=== PATIENT | male | born 1970 | race African-American/Black ===

== ENCOUNTER 2020-10-22 08:50 | Inpatient (IN) | payer MEDICAID, OTHER ==
[~2020-10-22] VITALS: Ht 182.9 cm; Wt 134.4 kg
[2020-10-22] MEDS ORDERED: FUROSEMIDE 40MG/4ML VIAL IV ONE (09:15)
[2020-10-22] MEDS ORDERED: DEXAMETHASONE 10 MG/ML VIAL IV ONE (09:30)
[2020-10-22 09:34] LABS: BASOPHILS % 0.5 % (0.0-2.0); EOSINOPHILS % 1.1 % (0.0-5.0); HEMATOCRIT. 46.8 % (42.0-52.0); HEMOGLOBIN. 14.9 g/dL (14.0-18.0); LYMPHOCYTES % 12.5 % (20.0-50.0); MEAN CORPUSCULAR HEMOGLOBIN 23.1 pg (28.0-32.0); MEAN CORPUSCULAR VOLUME 72.8 fL (80.0-94.0); MEAN PLATELET VOLUME 7.5 fl (7.4-10.4); MONOCYTES % 6.5 % (2.0-8.0); NEUTROPHILS % 79.4 % (40.0-76.0); PLATELET 140 x1000/uL (130-400); RED BLOOD CELL COUNT 6.43 mill/uL (4.7-6.1); RED CELL DISTRIBUTION WIDTH 16.6 % (11.6-14.6)
[2020-10-22 09:40] LABS: CHLORIDE 110 mEq/L (98-107)
[2020-10-22 09:43] LABS: PROTHROMBIN TIME 11.2 sec (9.6-11.0)
[2020-10-22] MEDS ORDERED: LEVOFLOXACIN 750MG PREMIX 150 ML IV ONE (09:45)
[2020-10-22] MEDS ORDERED: IBUPROFEN 400MG TABLET PO ONE (10:15)
[2020-10-22] MEDS ORDERED: ACETAMINOPHEN 325MG TABLET PO ONE (12:30)
[2020-10-22] MEDS ORDERED: HYDRALAZINE 20MG/ML VIAL IV ONE (13:30)
[2020-10-22] MEDS ORDERED: HYDROCODONE/ACETAMINOPHEN 5/325MG TABLET PO ONE (13:30)
[2020-10-22] MEDS ORDERED: LORAZEPAM 0.5MG TABLET PO PRN (16:30)
[2020-10-22] MEDS ORDERED: HYDROCODONE/ACETAMINOPHEN 5/325MG TABLET PO PRN (16:30)
[2020-10-22] MEDS ORDERED: ACETAMINOPHEN 325MG TABLET PO PRN ×2 (16:30)
[2020-10-22] MEDS ORDERED: ONDANSETRON HCL 4MG/2ML INJ IV PRN (16:30)
[2020-10-22] MEDS ORDERED: DOCUSATE SODIUM 100MG CAPSULE PO PRN (16:30)
[2020-10-22 17:03] LABS: BG BASE EXCESS 6.7 mmol/L (-2.0-2.0); BG CARBOXYHEMOGLOBIN 1.1 % (0.5-1.5); BG DEOXYHEMOGLOBIN 2.7 % (0.0-5.0); BG FRACTION INSPIRED OXYGEN 100; BG METHEMOGLOBIN 0.3 % (0.0-1.5); BG OXYGEN SATURATION 97.3 % (92.0-98.5); BG OXYHEMOGLOBIN 95.9 % (94.0-97.0); BG PCO2 94.4 mmHg (35.0-45.0); BG PH 7.234 (7.350-7.450); BG PO2 101.6 mmHg (75.0-100.0); BG SAMPLE SITE RIGHT BRACHIAL; BG TOTAL HEMOGLOBIN 17.1 g/dL (12.0-18.0); BG VENT MODE MASK - NRB
[2020-10-22 21:20] VITALS: BP 155/96
[2020-10-23] MEDS: CLONIDINE 0.1MG TABLET PO PRN (00:46)
[2020-10-23 04:00] VITALS: BP 159/95
[2020-10-23] MEDS ORDERED: LIDOCAINE HCL/PF 1% 2ML VIAL ONE (05:00)
[2020-10-23] MEDS: IPRATROPIUM/ALBUTEROL 0.5-3(2.5)MG/3ML NEB HHN PRN (05:06)
[2020-10-23 06:13] LABS: CANNABINOID URINE SCREEN NEGATIVE (NEGATIVE); OPIATES URINE SCREEN PRESUMTIVE POSITIVE (NEGATIVE)
[2020-10-23 06:14] LABS: *AMPHETAMINES SCREEN URINE NEGATIVE (NEGATIVE); *BARBITURATES SCREEN URINE NEGATIVE (NEGATIVE); *BENZODIAZEPINES SCREEN URINE NEGATIVE (NEGATIVE); *COCAINE SCREEN URINE NEGATIVE (NEGATIVE); PHENCYCLIDINE URINE SCREEN NEGATIVE (NEGATIVE)
[2020-10-23 06:44] LABS: METHADONE URINE SCREEN NEGATIVE (NEGATIVE)
[2020-10-23 08:00] VITALS: BP 153/95
[2020-10-23 08:08] LABS: BG BASE EXCESS 4.3 mmol/L (-2.0-2.0); BG CARBOXYHEMOGLOBIN 1.5 % (0.5-1.5); BG DEOXYHEMOGLOBIN 3.3 % (0.0-5.0); BG FRACTION INSPIRED OXYGEN 40; BG HCO3 ACT 34.9 mmol/L (22.0-26.0); BG METHEMOGLOBIN 0.3 % (0.0-1.5); BG OXYGEN SATURATION 96.6 % (92.0-98.5); BG OXYHEMOGLOBIN 94.9 % (94.0-97.0); BG PCO2 81.5 mmHg (35.0-45.0); BG PO2 94.3 mmHg (75.0-100.0); BG SAMPLE SITE RIGHT RADIAL; BG TOTAL HEMOGLOBIN 15.9 g/dL (12.0-18.0); BG VENT MODE MASK - SIMPLE
[2020-10-23] MEDS: FUROSEMIDE 40MG TABLET PO SCH (09:13)
[2020-10-23 10:05] LABS: BASOPHILS % 0.2 % (0.0-2.0); EOSINOPHILS % 0.2 % (0.0-5.0); HEMATOCRIT. 47.9 % (42.0-52.0); HEMOGLOBIN. 15.1 g/dL (14.0-18.0); LYMPHOCYTES % 8.7 % (20.0-50.0); MEAN CORPUSCULAR HEMOGLOBIN 23.1 pg (28.0-32.0); MEAN CORPUSCULAR VOLUME 73.5 fL (80.0-94.0); MEAN PLATELET VOLUME 8.3 fl (7.4-10.4); MONOCYTES % 5.2 % (2.0-8.0); NEUTROPHILS % 85.7 % (40.0-76.0); PLATELET 141 x1000/uL (130-400); RED BLOOD CELL COUNT 6.52 mill/uL (4.7-6.1); RED CELL DISTRIBUTION WIDTH 16.7 % (11.6-14.6)
[2020-10-23 10:13] LABS: CHLORIDE 102 mEq/L (98-107)
[2020-10-23 10:23] LABS: LDL CHOLESTEROL 84 mg/dL (5-100)
[2020-10-23 10:24] LABS: HDL CHOLESTEROL 32 mg/dL (40-59)
[2020-10-23 12:00] VITALS: BP 149/92
[2020-10-23] MEDS: DILTIAZEM HCL 60MG TABLET PO SCH ×2 (13:41→21:05)
[2020-10-23 16:00] VITALS: BP 136/85
[2020-10-23] MEDS: METHYLPREDNISOLONE SOD SUCC 40 MG/ML VIAL IV SCH (17:53)
[2020-10-23 20:00] VITALS: BP 167/99
[2020-10-24] VITALS (7 sets, daily range): BP systolic 152–171; BP diastolic 86–101
[2020-10-24] MEDS: METHYLPREDNISOLONE SOD SUCC 40 MG/ML VIAL IV SCH ×3 (01:00→18:24)
[2020-10-24] MEDS: CLONIDINE 0.1MG TABLET PO PRN ×2 (04:11→12:43)
[2020-10-24] MEDS: DILTIAZEM HCL 60MG TABLET PO SCH ×2 (05:24→14:50)
[2020-10-24 07:08] LABS: CHLORIDE 102 mEq/L (98-107)
[2020-10-24 07:09] LABS: HEMOGLOBIN. 15.8 g/dL (14.0-18.0); MEAN CORPUSCULAR HEMOGLOBIN 23.1 pg (28.0-32.0); MEAN PLATELET VOLUME 8.6 fl (7.4-10.4); PLATELET 156 x1000/uL (130-400); RED BLOOD CELL COUNT 6.85 mill/uL (4.7-6.1); RED CELL DISTRIBUTION WIDTH 16.6 % (11.6-14.6)
[2020-10-24] MEDS ORDERED: LIDOCAINE HCL/PF 1% 2ML VIAL ONE (07:31)
[2020-10-24] MEDS: FUROSEMIDE 40MG TABLET PO SCH (09:21)
[2020-10-24 09:33] LABS: BG BASE EXCESS 3.8 mmol/L (-2.0-2.0); BG CARBOXYHEMOGLOBIN 1.5 % (0.5-1.5); BG DEOXYHEMOGLOBIN 12.9 % (0.0-5.0); BG HCO3 ACT 31.9 mmol/L (22.0-26.0); BG METHEMOGLOBIN 0.2 % (0.0-1.5); BG OXYGEN SATURATION 86.9 % (92.0-98.5); BG OXYHEMOGLOBIN 85.4 % (94.0-97.0); BG PCO2 62.1 mmHg (35.0-45.0); BG PH 7.329 (7.350-7.450); BG PO2 52.3 mmHg (75.0-100.0); BG SAMPLE SITE RIGHT RADIAL; BG TOTAL HEMOGLOBIN 16.4 g/dL (12.0-18.0)
[2020-10-24] MEDS ORDERED: FUROSEMIDE 40MG/4ML VIAL IVP NR (13:00)
[2020-10-24] MEDS: IPRATROPIUM/ALBUTEROL 0.5-3(2.5)MG/3ML NEB HHN PRN ×3 (15:38→23:50)
[2020-10-24] MEDS: DILTIAZEM HCL 90MG TABLET PO SCH (21:00)
[2020-10-24 23:07] LABS: PLATELET ESTIMATE NORMAL
[2020-10-25] VITALS: BP 158/85
[2020-10-25] MEDS: METHYLPREDNISOLONE SOD SUCC 40 MG/ML VIAL IV SCH ×2 (01:19→09:15)
[2020-10-25 03:35] VITALS: BP 163/93
[2020-10-25] MEDS: CLONIDINE 0.1MG TABLET PO PRN ×2 (03:41→12:49)
[2020-10-25 04:00] VITALS: BP 152/83
[2020-10-25] MEDS: DILTIAZEM HCL 90MG TABLET PO SCH (06:00)
[2020-10-25 07:45] LABS: HEMATOCRIT. 50.1 % (42.0-52.0); HEMOGLOBIN. 16.1 g/dL (14.0-18.0); MEAN CORPUSCULAR HEMOGLOBIN 22.8 pg (28.0-32.0); MEAN CORPUSCULAR VOLUME 70.8 fL (80.0-94.0); MEAN PLATELET VOLUME 8.5 fl (7.4-10.4); PLATELET 204 x1000/uL (130-400); RED BLOOD CELL COUNT 7.08 mill/uL (4.7-6.1); RED CELL DISTRIBUTION WIDTH 15.7 % (11.6-14.6)
[2020-10-25 08:00] VITALS: BP 144/88
[2020-10-25 08:00] LABS: CHLORIDE 98 mEq/L (98-107)
[2020-10-25] MEDS: FUROSEMIDE 40MG TABLET PO SCH (09:15)
[2020-10-25 12:00] VITALS: BP 164/98
[2020-10-25] MEDS ORDERED: DILT90TA2 PO (12:04)
[2020-10-25] MEDS ORDERED: FURO40TA5 PO (12:04)
[2020-10-25] MEDS ORDERED: MED4 MT (12:04)
[2020-10-25] MEDS ORDERED: ALBU6.7H9 INH (12:11)
[2020-10-25 12:40] VITALS: BP 164/98
[2020-10-25 14:18] LABS: PLATELET ESTIMATE NORMAL
== END 2020-10-25 13:28 | disposition home or self-care (01) | DRG 816 ==
LOC: ER 08:50 → EDBEDREQ 09:57 → 7WST 11:45 → EDBEDREQ 11:48 → ENRESERV 19:24 → 5WST 10-23 02:36
PROVIDERS: ADMIT Internal Medicine; ATTEND Internal Medicine
PROC: 5A09357 Assistance with Respiratory Ventilation, Less than 24 Consecutive Hours, Continuous Positive Airway Pressure (ICD-10-PCS; principal; 2020-10-23)
PROC: 5A09357 Assistance with Respiratory Ventilation, Less than 24 Consecutive Hours, Continuous Positive Airway Pressure (ICD-10-PCS; 2020-10-24)
PROC: 5A09357 Assistance with Respiratory Ventilation, Less than 24 Consecutive Hours, Continuous Positive Airway Pressure (ICD-10-PCS; 2020-10-25)
DX: T59.891A Toxic effect of other specified gases, fumes and vapors, accidental (unintentional), initial encounter (principal); J96.01 Acute respiratory failure with hypoxia; J96.02 Acute respiratory failure with hypercapnia; I11.0 Hypertensive heart disease with heart failure; I50.42 Chronic combined systolic (congestive) and diastolic (congestive) heart failure; E66.2 Morbid (severe) obesity with alveolar hypoventilation; Z68.41 Body mass index [BMI] 40.0-44.9, adult; D72.0 Genetic anomalies of leukocytes; J68.0 Bronchitis and pneumonitis due to chemicals, gases, fumes and vapors; I16.0 Hypertensive urgency; K46.9 Unspecified abdominal hernia without obstruction or gangrene; Z20.822 Contact with and (suspected) exposure to COVID-19; Y92.89 Other specified places as the place of occurrence of the external cause; Z79.899 Other long term (current) drug therapy; Z88.8 Allergy status to other drugs, medicaments and biological substances; R07.2 Precordial pain
CPT/HCPCS: 36415; 36600; 71045; 74176; 80048; 80053; 80061; 80305; 82375; 82805; 83036; 83880; 84443; 84484; 85025; 85379; 93005; 93306; 94640; 94660; 99291; J0360; J1100; J1940; J1956; J2920; J3490; U0003; U0005

== ENCOUNTER 2023-06-16 16:24 | Emergency (ER) | payer MEDICAID ==
[~2023-06-16] VITALS: Ht 177.8 cm; Wt 127.0 kg
[~2023-06-16 16:24] MED LIST: ALBU6.7H3 INH; DILT90TA2 PO; FURO40TA5 PO; MED4 MT
[2023-06-16] MEDS: METHYLPREDNISOLONE SOD SUCC 125MG/2ML (ACT-O-VIAL) IV STA (16:32)
[2023-06-16] MEDS: ALBUTEROL (0.083%) 2.5MG/3ML NEB HHN SCH (16:42)
[2023-06-16] MEDS: IPRATROPIUM BROMIDE (0.02%) 0.5MG/2.5ML NEB HHN STA (16:52)
[2023-06-16] MEDS: FUROSEMIDE 40MG/4ML VIAL IVP ONE (17:00)
[2023-06-16 18:03] LABS: BASOPHILS % 0.3 % (0.0-2.0); DIFFERENTIAL COMMENT 0; EOSINOPHILS % 0.3 % (0.0-5.0); HEMATOCRIT. 44.5 % (42.0-52.0); HEMOGLOBIN. 14.4 g/dL (14.0-18.0); LYMPHOCYTES % 8.1 % (20.0-50.0); MEAN CORPUSCULAR HEMOGLOBIN 22.7 pg (28.0-32.0); MEAN CORPUSCULAR HGB CONC 32.4 g/dL (31.0-37.0); MEAN CORPUSCULAR VOLUME 70.1 fL (80.0-94.0); MEAN PLATELET VOLUME 8.8 fl (7.4-10.4); MONOCYTES % 8.3 % (2.0-8.0); PLATELET 173 x1000/uL (130-400); RED BLOOD CELL COUNT 6.35 mill/uL (4.7-6.1); RED CELL DISTRIBUTION WIDTH 15.4 % (11.6-14.6); WHITE BLOOD COUNT 10.8 x1000/uL (4.5-11.0)
[2023-06-16] MEDS: KETOROLAC 30MG/ML VIAL IV ONE (18:08)
[2023-06-16 18:14] LABS: PARTIAL THROMBOPLASTIN TIME 27.2 sec (23.4-31.0); PROTHROMBIN TIME 11.4 sec (9.6-11.0)
[2023-06-16 18:17] LABS: ALANINE AMINOTRANSFERASE 20 IU/L (10-49); ALBUMIN 4.4 g/dL (3.2-4.8); ASPARTATE AMINOTRANSFERASE 18 IU/L (<34); BILIRUBIN TOTAL 2.2 mg/dL (0.1-1.0); CALCIUM 9.3 mg/dL (8.7-10.4); CARBON DIOXIDE 33 mEq/L (21-32); CHLORIDE 102 mEq/L (98-107); CREATININE 0.9 mg/dL (0.6-1.3); GLUCOSE 93 mg/dL (70-105); PROTEIN TOTAL 7.2 g/dL (6.0-8.3); SODIUM 139 mEq/L (136-145); TROPONIN I HIGH SENSITIVITY 48 ng/L (3.0-53); UREA NITROGEN BLOOD 12 mg/dL (9-23)
[2023-06-16] MEDS: IPRATROPIUM BROMIDE (0.02%) 0.5MG/2.5ML NEB HHN SCH (18:53)
[2023-06-16 19:00] VITALS: TEMP 98.2
[2023-06-16] MEDS: HYDRALAZINE 20MG/ML VIAL IV ONE (19:03)
[2023-06-16 19:37] VITALS: PULSE 104; RESP 20; O2SAT 95
[2023-06-16] MEDS: NITROGLYCERIN 0.4MG TABLET SL SL ONE (21:11)
[2023-06-16 21:23] LABS: TROPONIN I HIGH SENSITIVITY 44 ng/L (3.0-53)
[2023-06-16 23:25] VITALS: BP 168/80; PULSE 112; RESP 18
== END 2023-06-17 00:25 | disposition short-term general hospital (02) ==
LOC: ER 16:34
DX: J44.1 Chronic obstructive pulmonary disease with (acute) exacerbation (principal); I11.0 Hypertensive heart disease with heart failure; I50.9 Heart failure, unspecified; Z79.899 Other long term (current) drug therapy
CPT/HCPCS: 80053; 83880; 85025; 85610; 85730; 84484; 36415; 71045; 73610; 93005; 94644; 96374; 96375; 99291; J1940; J0360; J1885; J2930; Z7610 ×6; 94003; 94640

== ENCOUNTER 2023-09-07 21:54 | Emergency (ER) | payer MEDICAID ==
[~2023-09-07] VITALS: Ht 185.4 cm; Wt 140.0 kg
[2023-09-07 21:56] VITALS: TEMP 98.4; O2SAT 99
[2023-09-07 23:21] VITALS: BP 156/94; PULSE 84; RESP 17
[2023-09-07] MEDS: HYDROCODONE/ACETAMINOPHEN 5/325MG TABLET PO ONE (23:21)
[2023-09-07 23:24] LABS: BASOPHILS % 0.3 % (0.0-2.0); DIFFERENTIAL COMMENT 0; EOSINOPHILS % 1.6 % (0.0-5.0); HEMATOCRIT. 51.6 % (42.0-52.0); HEMOGLOBIN. 16.1 g/dL (14.0-18.0); LYMPHOCYTES % 12.8 % (20.0-50.0); MEAN CORPUSCULAR HEMOGLOBIN 22.1 pg (28.0-32.0); MEAN CORPUSCULAR HGB CONC 31.2 g/dL (31.0-37.0); MEAN CORPUSCULAR VOLUME 70.8 fL (80.0-94.0); MEAN PLATELET VOLUME 8.4 fl (7.4-10.4); MONOCYTES % 6.3 % (2.0-8.0); PLATELET 199 x1000/uL (130-400); RED BLOOD CELL COUNT 7.28 mill/uL (4.7-6.1); RED CELL DISTRIBUTION WIDTH 18.9 % (11.6-14.6)
[2023-09-07 23:28] LABS: CHLORIDE 102 mEq/L (98-107); POTASSIUM 4.1 mEq/L (3.5-5.1); SODIUM 138 mEq/L (136-145)
[2023-09-07 23:29] LABS: CARBON DIOXIDE 30 mEq/L (21-32)
[2023-09-07 23:30] LABS: CALCIUM 9.8 mg/dL (8.7-10.4)
[2023-09-07 23:34] LABS: CREATININE 0.9 mg/dL (0.6-1.3); GLUCOSE 102 mg/dL (70-105); UREA NITROGEN BLOOD 11 mg/dL (9-23)
[2023-09-07 23:35] LABS: TROPONIN I HIGH SENSITIVITY 25 ng/L (3.0-53)
[2023-09-07 23:36] LABS: ALANINE AMINOTRANSFERASE 18 IU/L (10-49); ALBUMIN 4.7 g/dL (3.2-4.8); ASPARTATE AMINOTRANSFERASE 26 IU/L (<34)
[2023-09-07 23:37] LABS: BILIRUBIN TOTAL 1.3 mg/dL (0.1-1.0); PROTEIN TOTAL 7.8 g/dL (6.0-8.3)
[2023-09-08] MEDS: FUROSEMIDE 40MG TABLET PO ONE (01:21)
[2023-09-08 01:42] LABS: TROPONIN I HIGH SENSITIVITY 25 ng/L (3.0-53)
[2023-09-08] MEDS ORDERED: ACET-2708 MT (02:31)
[2023-09-08] MEDS ORDERED: IBUP-2029 MT (02:31)
== END 2023-09-08 02:50 | disposition home or self-care (01) ==
LOC: ER 22:07
DX: S00.83XA Contusion of other part of head, initial encounter (principal); M54.50 Low back pain, unspecified; I11.0 Hypertensive heart disease with heart failure; I50.9 Heart failure, unspecified; Z88.1 Allergy status to other antibiotic agents; V49.9XXA Car occupant (driver) (passenger) injured in unspecified traffic accident, initial encounter; Y93.89 Activity, other specified; Y92.89 Other specified places as the place of occurrence of the external cause; Y99.8 Other external cause status
CPT/HCPCS: 36415; 71045; 72131; 73610; 80053; 83880; 84484; 85025; 93005; 99285

== ENCOUNTER 2024-04-27 11:07 | Emergency (ER) | payer MEDICAID ==
[~2024-04-27] VITALS: Ht 188 cm; Wt 150.0 kg
[~2024-04-27 11:07] MED LIST changes: +ACET-2708 MT; +IBUP-2029 MT; -MED4 MT; +METH4TAB95 MT
[2024-04-27 11:09] VITALS: O2SAT 93
[2024-04-27 11:55] LABS: BASOPHILS % 0.4 % (0.0-2.0); DIFFERENTIAL COMMENT 0; EOSINOPHILS % 1.1 % (0.0-5.0); HEMATOCRIT. 42.6 % (42.0-52.0); HEMOGLOBIN. 13.3 g/dL (14.0-18.0); LYMPHOCYTES % 7.1 % (20.0-50.0); MEAN CORPUSCULAR HEMOGLOBIN 22.4 pg (28.0-32.0); MEAN CORPUSCULAR HGB CONC 31.1 g/dL (31.0-37.0); MEAN CORPUSCULAR VOLUME 71.8 fL (80.0-94.0); MEAN PLATELET VOLUME 7.7 fl (7.4-10.4); MONOCYTES % 5.7 % (2.0-8.0); NEUTROPHILS % 85.7 % (40.0-76.0); PLATELET 155 x1000/uL (130-400); RED BLOOD CELL COUNT 5.94 mill/uL (4.7-6.1); RED CELL DISTRIBUTION WIDTH 15.8 % (11.6-14.6); WHITE BLOOD COUNT 10.8 x1000/uL (4.5-11.0)
[2024-04-27 12:03] LABS: CHLORIDE 105 mEq/L (98-107); POTASSIUM 4.2 mEq/L (3.5-5.1); SODIUM 140 mEq/L (136-145)
[2024-04-27 12:04] LABS: CARBON DIOXIDE 32 mEq/L (21-32)
[2024-04-27 12:09] LABS: CREATININE 0.9 mg/dL (0.6-1.3); GLUCOSE 109 mg/dL (70-105); UREA NITROGEN BLOOD 13 mg/dL (9-23)
[2024-04-27 12:10] LABS: TROPONIN I HIGH SENSITIVITY 26 ng/L (3.0-53)
[2024-04-27] MEDS ORDERED: FURO-151 MT (12:58)
[2024-04-27] MEDS: FUROSEMIDE 40MG/4ML VIAL IVP ONE (13:00)
[2024-04-27] MEDS: LABETALOL 5MG/ML 4ML INJ IV ONE (13:23)
[2024-04-27 14:06] VITALS: BP 157/91; PULSE 64; RESP 16; TEMP 36.94740; O2SAT 96
== END 2024-04-27 14:20 | disposition home or self-care (01) ==
LOC: ER 11:07 → EDBEDREQ 12:26 → ER 14:20
DX: R07.9 Chest pain, unspecified (principal); I11.0 Hypertensive heart disease with heart failure; J44.9 Chronic obstructive pulmonary disease, unspecified; F19.90 Other psychoactive substance use, unspecified, uncomplicated; I50.9 Heart failure, unspecified; Z76.0 Encounter for issue of repeat prescription; Z79.899 Other long term (current) drug therapy; Z88.0 Allergy status to penicillin
CPT/HCPCS: 80048; 83880; 85025; 84484; 36415; 71045; 96374; 96375; 99284; J1940; J3490; Z7610 ×4

== ENCOUNTER 2025-03-28 20:17 | Inpatient (IN) | payer MEDICAID ==
[~2025-03-28] VITALS: Ht 185.4 cm; Wt 126.3 kg
[2025-03-28] MEDS: IPRATROPIUM/ALBUTEROL 0.5-3(2.5)MG/3ML NEB HHN ONE (12:41)
[~2025-03-28 20:17] MED LIST changes: +FURO-151 MT; +IBUP-1455 MT; -IBUP-2029 MT
[2025-03-28 20:18] VITALS: RESP 28
[2025-03-28 20:40] LABS: HEMATOCRIT. 50.8 % (42.0-52.0); HEMOGLOBIN. 15.2 g/dL (14.0-18.0); MEAN PLATELET VOLUME 8.6 fl (7.4-10.4); PLATELET 135 x1000/uL (130-400); RED BLOOD CELL COUNT 7.03 mill/uL (4.7-6.1); RED CELL DISTRIBUTION WIDTH 18.5 % (11.6-14.6)
[2025-03-28 20:49] LABS: CREATININE 0.8 mg/dL (0.6-1.3)
[2025-03-28 20:50] LABS: UREA NITROGEN BLOOD 9 mg/dL (9-23)
[2025-03-28 20:51] LABS: TROPONIN I HIGH SENSITIVITY 22 ng/L (3.0-53)
[2025-03-28 20:52] LABS: ASPARTATE AMINOTRANSFERASE 25 IU/L (<34); BILIRUBIN DIRECT 0.4 mg/dL (<=3.0); BILIRUBIN TOTAL 1.2 mg/dL (0.1-1.0); PROTEIN TOTAL 6.8 g/dL (6.0-8.3)
[2025-03-28] MEDS ORDERED: METHYLPREDNISOLONE 40MG/ML INJ IV ONE (23:15)
[2025-03-28] MEDS: KETOROLAC 15MG/ML VIAL IV ONE (23:29)
[2025-03-28] MEDS: NITROGLYCERIN OINT 1GM/INCH UDPKT TD ONE (23:29)
[2025-03-28] MEDS: METHYLPREDNISOLONE SOD SUCC 125MG/2ML (ACT-O-VIAL) IV NR (23:35)
[2025-03-28 23:46] LABS: TROPONIN I HIGH SENSITIVITY 76 ng/L (3.0-53)
[2025-03-28 23:56] LABS: BAND% 2.0 % (1.0-6.0); LYMPHOCYTES % MANUAL 4.0 % (20.0-50.0); MONOCYTES % MANUAL 7.0 % (2.0-8.0); NEUTROPHILS % MANUAL 87.0 % (45.0-75.0); PLATELET ESTIMATE NORMAL
[2025-03-29] VITALS (15 sets, daily range): BP systolic 121–166; BP diastolic 74–133; PULSE 71–99; RESP 19–32; TEMP 36.4–36.8628; O2SAT 85–98
[2025-03-29] MEDS: LABETALOL 5MG/ML 4ML INJ IV ONE (00:34)
[2025-03-29] MEDS ORDERED: MORPHINE SULFATE 2 MG/ML INJ (NOT FOR IM USE) IV PRN (00:45)
[2025-03-29] MEDS ORDERED: ZOLPIDEM TARTRATE 5MG TABLET PO PRN (00:45)
[2025-03-29] MEDS ORDERED: MAGNESIUM/ALUMINUM HYDROXIDE/SIMETHICONE 30ML UDC PO PRN (00:45)
[2025-03-29] MEDS ORDERED: ONDANSETRON HCL 4MG/2ML INJ IV PRN (00:45)
[2025-03-29] MEDS ORDERED: ACETAMINOPHEN 325MG TABLET PO PRN (00:45)
[2025-03-29] MEDS ORDERED: HYDROCODONE/ACETAMINOPHEN 5/325MG TABLET PO PRN (00:45)
[2025-03-29] MEDS ORDERED: AZITHROMYCIN 500MG/250ML 250 ML IV SCH (01:00)
[2025-03-29 01:39] LABS: INR 0.9
[2025-03-29] MEDS ORDERED: CEFTRIAXONE 1GM/50ML 50 ML IV SCH (02:00)
[2025-03-29] MEDS: METHYLPREDNISOLONE SOD SUCC 40MG/ML (ACT-O-VIAL) IV SCH (02:52)
[2025-03-29] MEDS: CLONIDINE 0.1MG TABLET PO PRN (02:53)
[2025-03-29] MEDS: CEFTRIAXONE 1GM/50ML 50 ML IV SCH (02:53)
[2025-03-29] MEDS: AZITHROMYCIN 500MG/250ML 250 ML IV SCH (03:01)
[2025-03-29] MEDS: DILTIAZEM HCL 90MG TABLET PO SCH (06:30)
[2025-03-29] MEDS: IPRATROPIUM/ALBUTEROL 0.5-3(2.5)MG/3ML NEB NEB SCH (08:31)
[2025-03-29] MEDS: ENOXAPARIN 40MG/0.4ML SYR SUBCUT SCH (08:53)
[2025-03-29] MEDS: PANTOPRAZOLE SODIUM 40 MG/VIAL IV SCH (08:53)
[2025-03-29] MEDS: FUROSEMIDE 40MG TABLET PO SCH ×2 (08:54→21:46)
[2025-03-29 10:24] LABS: TROPONIN I HIGH SENSITIVITY 15 ng/L (3.0-53)
[2025-03-29] MEDS ORDERED: NALOXONE HCL 0.4MG/ML VIAL IV PRN (11:15)
[2025-03-29] MEDS: THROAT LOZENGES-BENZOCAINE/MENTH/CETYLPYRD CL LOZENGES MM PRN ×2 (13:06→18:01)
[2025-03-29 13:17] LABS: BG BASE EXCESS 6.8 mmol/L (-2.0-3.0); BG CARBOXYHEMOGLOBIN 1.4 % (0.5-1.5); BG DEOXYHEMOGLOBIN 5.0 % (0.0-5.0); BG FRACTION INSPIRED OXYGEN 50; BG HCO3 ACT 37.2 mmol/L (21.0-28.0); BG METHEMOGLOBIN 0.0 % (0.5-1.5); BG OXYGEN SATURATION 94.9 % (94.0-98.0); BG OXYHEMOGLOBIN 93.6 % (94.0-98.0); BG PCO2 81.1 mmHg (35.0-48.0); BG PH 7.279 (7.350-7.450); BG PO2 76.0 mmHg (83.0-108.0); BG SAMPLE SITE RIGHT RADIAL; BG TOTAL HEMOGLOBIN 15.9 g/dL (13.5-17.5); BG TOTAL RESPIRATORY RATE 24 b/min; BG VENT MODE MASK - BIPAP; BG VENT RATE 20.0 set
[2025-03-29] MEDS ORDERED: IPRATROPIUM/ALBUTEROL 0.5-3(2.5)MG/3ML NEB HHN PRN (15:15)
[2025-03-29] MEDS: INFLUENZA VACCINE 05/PF 0.5 ML SYRINGE IM ONE (18:07)
[2025-03-29] MEDS: PNEUMOCOCCAL 20-VAL CONJ-DIP CRM 0.5ML IM ONE (18:09)
[2025-03-29 18:40] LABS: TROPONIN I HIGH SENSITIVITY 11 ng/L (3.0-53)
[2025-03-29] MEDS: GUAIFENESIN 600MG ER TABLET PO SCH (21:45)
[2025-03-29] MEDS: ENOXAPARIN 30MG/0.3ML SYR SUBCUT SCH (21:45)
[2025-03-30] VITALS (19 sets, daily range): BP systolic 114–175; BP diastolic 63–109; PULSE 61–89; RESP 13–28; TEMP 36.4–36.9; O2SAT 80–97
[2025-03-30 07:12] LABS: HEMATOCRIT. 51.0 % (42.0-52.0); HEMOGLOBIN. 14.9 g/dL (14.0-18.0); MEAN PLATELET VOLUME 8.8 fl (7.4-10.4); PLATELET 166 x1000/uL (130-400); RED BLOOD CELL COUNT 7.05 mill/uL (4.7-6.1); RED CELL DISTRIBUTION WIDTH 17.9 % (11.6-14.6)
[2025-03-30 07:29] LABS: CREATININE 1.1 mg/dL (0.6-1.3); UREA NITROGEN BLOOD 22 mg/dL (9-23)
[2025-03-30 09:35] LABS: *AMPHETAMINES SCREEN URINE NEGATIVE (NEGATIVE); *BARBITURATES SCREEN URINE NEGATIVE (NEGATIVE); *BENZODIAZEPINES SCREEN URINE NEGATIVE (NEGATIVE); *COCAINE SCREEN URINE PRESUMPTIVE POSITIVE (NEGATIVE); CANNABINOID URINE SCREEN NEGATIVE (NEGATIVE); ECSTASY MDMA SCREEN URINE NEGATIVE (NEGATIVE); METHADONE URINE SCREEN NEGATIVE (NEGATIVE); OPIATES URINE SCREEN NEGATIVE (NEGATIVE); PHENCYCLIDINE URINE SCREEN NEGATIVE (NEGATIVE)
[2025-03-30] MEDS: FUROSEMIDE 40MG/4ML VIAL IVP SCH (13:43)
[2025-03-30] MEDS: LISINOPRIL 20MG TABLET PO SCH (13:46)
[2025-03-30 18:05] LABS: LYMPHOCYTES % MANUAL 2.0 % (20.0-50.0); MONOCYTES % MANUAL 4.0 % (2.0-8.0); NEUTROPHILS % MANUAL 94.0 % (45.0-75.0); PLATELET ESTIMATE NORMAL
[2025-03-31] VITALS (22 sets, daily range): BP systolic 151–179; BP diastolic 77–117; PULSE 60–98; RESP 15–36; TEMP 36.6–37.1; O2SAT 92–98
[2025-03-31 08:23] LABS: HEMATOCRIT. 52.3 % (42.0-52.0); HEMOGLOBIN. 15.3 g/dL (14.0-18.0); MEAN PLATELET VOLUME 9.4 fl (7.4-10.4); PLATELET 185 x1000/uL (130-400); RED BLOOD CELL COUNT 7.20 mill/uL (4.7-6.1); RED CELL DISTRIBUTION WIDTH 18.2 % (11.6-14.6)
[2025-03-31 08:39] LABS: CREATININE 0.9 mg/dL (0.6-1.3); UREA NITROGEN BLOOD 21 mg/dL (9-23)
[2025-03-31] MEDS ORDERED: DILTIAZEM HCL 90MG TABLET PO SCH (13:15)
[2025-03-31] MEDS: DILTIAZEM HCL 60MG TABLET PO SCH (14:00)
[2025-03-31 17:04] LABS: BAND% 1.0 % (1.0-6.0); LYMPHOCYTES % MANUAL 1.0 % (20.0-50.0); MONOCYTES % MANUAL 3.0 % (2.0-8.0); NEUTROPHILS % MANUAL 95.0 % (45.0-75.0); PLATELET ESTIMATE NORMAL
[2025-04-01] VITALS (10 sets, daily range): BP systolic 135–199; BP diastolic 77–109; PULSE 53–82; RESP 15–36; TEMP 36.4–36.9; O2SAT 92–97
[2025-04-01 07:34] LABS: CREATININE 0.9 mg/dL (0.6-1.3)
[2025-04-01 07:35] LABS: UREA NITROGEN BLOOD 23 mg/dL (9-23)
[2025-04-01 07:38] LABS: HEMATOCRIT. 51.8 % (42.0-52.0); HEMOGLOBIN. 15.0 g/dL (14.0-18.0); MEAN PLATELET VOLUME 9.0 fl (7.4-10.4); PLATELET 188 x1000/uL (130-400); RED BLOOD CELL COUNT 7.25 mill/uL (4.7-6.1); RED CELL DISTRIBUTION WIDTH 18.5 % (11.6-14.6)
[2025-04-01 10:16] LABS: BG BASE EXCESS 8.2 mmol/L (-2.0-3.0); BG CARBOXYHEMOGLOBIN 1.3 % (0.5-1.5); BG DEOXYHEMOGLOBIN 9.1 % (0.0-5.0); BG FLOW(L/min) 4.00 L/min; BG FRACTION INSPIRED OXYGEN 36; BG HCO3 ACT 36.5 mmol/L (21.0-28.0); BG METHEMOGLOBIN 0.3 % (0.5-1.5); BG OXYGEN SATURATION 90.8 % (94.0-98.0); BG OXYHEMOGLOBIN 89.3 % (94.0-98.0); BG PCO2 64.7 mmHg (35.0-48.0); BG PH 7.369 (7.350-7.450); BG PO2 59.3 mmHg (83.0-108.0); BG SAMPLE SITE RIGHT RADIAL; BG TOTAL HEMOGLOBIN 16.7 g/dL (13.5-17.5); BG VENT MODE NASAL CANNULA
[2025-04-01] MEDS ORDERED: LISINOPRIL 20MG TABLET PO SCH (13:15)
[2025-04-01] MEDS ORDERED: CLONIDINE 0.1MG TABLET PO SCH (14:00)
[2025-04-01 18:33] LABS: LYMPHOCYTES % MANUAL 1.0 % (20.0-50.0); MONOCYTES % MANUAL 1.0 % (2.0-8.0); NEUTROPHILS % MANUAL 98.0 % (45.0-75.0); PLATELET ESTIMATE NORMAL
[2025-04-02] MEDS ORDERED: FUROSEMIDE 40MG TABLET PO SCH (09:00)
== END 2025-04-01 13:00 | disposition left against medical advice (07) | DRG 720 ==
LOC: ER 20:17 → EDBEDREQTM 23:31 → EDBEDREQ 23:31 → ENRESERV 03-29 00:22 → 5EST 03-29 01:54
PROVIDERS: ADMIT Internal Medicine; ATTEND Internal Medicine
PROC: 5A09357 Assistance with Respiratory Ventilation, Less than 24 Consecutive Hours, Continuous Positive Airway Pressure (ICD-10-PCS; principal; 2025-03-29)
PROC: 5A09357 Assistance with Respiratory Ventilation, Less than 24 Consecutive Hours, Continuous Positive Airway Pressure (ICD-10-PCS; 2025-03-30)
PROC: 5A09357 Assistance with Respiratory Ventilation, Less than 24 Consecutive Hours, Continuous Positive Airway Pressure (ICD-10-PCS; 2025-03-31)
PROC: 5A09357 Assistance with Respiratory Ventilation, Less than 24 Consecutive Hours, Continuous Positive Airway Pressure (ICD-10-PCS; 2025-04-01)
DX: A41.9 Sepsis, unspecified organism (principal); J96.22 Acute and chronic respiratory failure with hypercapnia; J96.21 Acute and chronic respiratory failure with hypoxia; E87.29 Other acidosis; K43.6 Other and unspecified ventral hernia with obstruction, without gangrene; J18.9 Pneumonia, unspecified organism; I50.32 Chronic diastolic (congestive) heart failure; I11.0 Hypertensive heart disease with heart failure; E11.65 Type 2 diabetes mellitus with hyperglycemia; E66.01 Morbid (severe) obesity due to excess calories; F14.10 Cocaine abuse, uncomplicated; J44.1 Chronic obstructive pulmonary disease with (acute) exacerbation; Z53.29 Procedure and treatment not carried out because of patient's decision for other reasons; G47.33 Obstructive sleep apnea (adult) (pediatric); Z87.891 Personal history of nicotine dependence; Z88.0 Allergy status to penicillin; Z99.81 Dependence on supplemental oxygen; Z68.36 Body mass index [BMI] 36.0-36.9, adult; Z79.899 Other long term (current) drug therapy
CPT/HCPCS: 36415; 36600; 71045; 80048; 80076; 80305; 82375; 82805; 83735; 83880; 84145; 84443; 84484; 85025; 90686; 90732; 93005; 93306; 93970; 94070; 94640; 94660; 94664; 98960; 99285; A4615; J0456; J0696; J1650; J1885; J1938; J2470; J2919; J3490